=== PATIENT | male | born 1960 | race Caucasian/White ===

== ENCOUNTER 2018-05-18 11:54 | Inpatient (IN) | payer BC, OTHER ==
[2018-05-18 12:25] LABS: #Eosinphils 0.1 thou/uL (0.0-0.7); #Monocytes 0.9 thou/uL (0.11-0.59); #Neutrophils 4.7 thou/uL (1.40-6.50); %Basophils 0.6 % (0.0-1.0); %Eosinophils 1.1 % (0.0-10.0); %Lymphocytes 14.5 % (21.0-51.0); %Monocytes 13.6 % (0.0-10.0); %Neutrophils 70.2 % (42.0-75.0); Hemoglobin 13.7 g/dL (14.0-18.0); Mean Corpuscular HGB CONC 32.7 g/dL (32.0-36.0); Mean Corpuscular Hemoglobin 32.1 pg (27.0-31.0); Mean Platelet Volume 7.3 fL (7.4-10.4); Platelet Count 252 thou/uL (130-400); Red Blood Cell (RBC) Count 4.29 mill/uL (4.70-6.10); White Blood Cell (WBC) Count 6.8 thou/uL (4.8-10.8)
[2018-05-18 12:46] LABS: ALT (SGPT) 33 U/L (8-55); AST (SGOT) 29 U/L (5-34); Albumin 4.8 g/dL (3.5-5.0); Alkaline Phosphatase 92 U/L (40-150); Anion Gap 18 mmol/L (10-20); BUN (Urea Nitrogen) 12 mg/dL (8.4-25.7); Bilirubin, Total 1.6 mg/dL (0.2-1.2); Calc. Creatinine Clearance 0 mL/min (70-130); Calcium 9.5 mg/dL (7.8-10.44); Carbon Dioxide 19 mmol/L (22-29); Chloride 92 mmol/L (98-107); Estimated GFR-MDRD 83; Globulin 3.4 g/dL (2.4-3.5); Glucose 98 mg/dL (70-105); Potassium 4.8 mmol/L (3.5-5.1); Protein, Total 8.2 g/dL (6.0-8.3); Sodium 124 mmol/L (136-145)
[2018-05-18 12:50] LABS: CKMB 4.1 ng/mL (0-6.6); Troponin I 0.035 ng/mL (< 0.028)
[2018-05-18] MEDS ORDERED: Furosemide 40 MG/4 ML VIAL ONE (13:17)
[2018-05-18] MEDS ORDERED: Nitroglycerin 2% Ointment 1 INCH/1 GM Packet ONE (13:17)
[2018-05-18] MEDS ORDERED: Nitroglycerin 0.4 MG TAB (25 Tab Bottle) ONE (13:56)
--- NOTE | 2018-05-18 14:53 | RAD ---
PORTABLE UPRIGHT FRONTAL CHEST RADIOGRAPH: DATE: 05/18/2018. COMPARISON: 12/19/2006. HISTORY: Dyspnea and shortness of breath. FINDINGS: Midline sternotomy wires and prominence of the cardiac silhouette noted, stable. No pneumothorax, lo bar consolidation, or alveolar edema. IMPRESSION: No significant interval change - no focal consolidation or alveolar edema. POS: [facility]
[2018-05-18] MEDS ORDERED: niCARdipine 20MG In NaCl 20 MG/200 ML BAG ONE (14:57)
[2018-05-18] MEDS ORDERED: Bisacodyl 5 MG TAB PO PRN (15:34)
[2018-05-18] MEDS ORDERED: Senokot S 8.6-50 MG TAB PO PRN (15:34)
[2018-05-18] MEDS ORDERED: Acetaminophen 325 MG TAB PO PRN (15:34)
[2018-05-18 15:36] LABS: Troponin I 0.029 ng/mL (< 0.028)
[2018-05-18] MEDS ORDERED: Nitroglycerin 0.4 MG TAB (25 Tab Bottle) PO PRN (15:37)
[2018-05-18] MEDS ORDERED: Lorazepam 0.5 MG TAB PO PRN (16:25)
[2018-05-18 16:29] LABS: Hemoglobin A1c 5.2 % (4.0-6.0)
[2018-05-18] MEDS ORDERED: Lisinopril 20 MG TAB PO SCH (17:00)
[2018-05-18 17:21] VITALS: BMI 58.1
--- NOTE | 2018-05-18 17:30 | HP ---
CHIEF COMPLAINT: Shortness of breath. HISTORY OF PRESENT ILLNESS: The patient is a 58-year-old male with a history of coronary artery dise ase, status post bypass 12 years ago, who has been having shortness of breath for the past 4-6 weeks. The patient stated that he is able to walk only 50 to 100 feet and gets very short of breath. The patient, however, has been following up with his PCP every 6-8 months. The patient stated that he ma de an appointment with Dr. Murphy today and was seen in the office and was asked to come into the ER for further evaluation. The patient also was found to be in atrial fibrillation; however, his rat e was controlled. The patient denies any chest tightness or chest pressure. He denies any nausea, v omiting, or diarrhea. The patient does state that he has been eating a significant amount of fast fo od and has been drinking a lot of water. PAST MEDICAL HISTORY: History of hypertension, hyperlipidemia. PAST SURGICAL HISTORY: He has had open bypass. SOCIAL HISTORY: The patient is a former smoker, used to smoke 2 packs a day, quit 30 years ago. How ever alcohol, he drinks 12 pack a day, last alcoholic beverage was yesterday. He denies any recreati onal drug use. He is a FULL CODE per the patient. ALLERGIES: No known drug allergies. MEDICATIONS: He does not know his medication list. REVIEW OF SYSTEMS: All negative except for the ones mentioned above in the HPI. FAMILY HISTORY: The patient has a history of father of cirrhosis of the liver. PHYSICAL EXAMINATION: VITAL SIGNS: Initially when the patient came into the ER, his blood pressure was 230/110. The patie nt was put on a Cardene drip and also was given nitro. Currently, patient's blood pressure is 160/80 , temperature 98.8, heart rate of 80s, 98% on room air. GENERAL: He is obese. Does not appear in distress. He appears very flushed. CARDIOVASCULAR: Irregularly irregular. No murmurs or rubs heard. LUNGS: Clear to auscultation. No rhonchi or wheezes noted. ABDOMEN: Obese. Bowel sounds are present x2. No pain upon palpation. EXTREMITIES: Significant lower extremity edema. Pedal pulses are present bilaterally but has got si gnificant edema. SKIN: He does have some redness noted to his lower extremity; however, there are no signs of infecti on noted. NEUROVASCULAR: No focal deficits noted. LABORATORY DATA: As of the following, WBC of 6.8, hemoglobin of 13.7, hematocrit of 42.0, platelets of 252. His BNP was 1289. Sodium of 124, potassium of 4.8, BUN 12, creatinine 0.93. Troponin was 0 .035 and then 0.029. Bilirubin is mildly elevated at 1.6. Chest x-ray indicated mild congestion. E KG indicated afib. ASSESSMENT AND PLAN: The patient is a very pleasant 58-year-old male who presents to the hospital wi th complaints of, 1. Shortness of breath. Differential includes most likely heart failure, unsure of systolic versus diastolic. We will check an echocardiogram. We will consult Cardiology. Patient also is in atrial fibrillation and rate controlled. We will put patient on Lasix 40 mg twice a day. Strict I's and O' s, daily weight. We will also check a TSH. echo is pending. 2. Atrial fibrillation, rate controlled. New diagnosis of atrial fibrillation. The patient does no t recall him to be in atrial fibrillation in the past. CHADS-VASc score is 2, presumed to be possibl e heart failure. I will put him on Lovenox for now and also on aspirin. 3. Morbid obesity. I did educate the patient about diet and exercise. The patient states that he i s willing to make some changes. 4. Alcohol use. The patient drinks 12 pack a day. We will put the patient on alcohol withdrawal pr otocol and also p.r.n. Ativan. 5. Deep venous thrombosis prophylaxis. The patient is already on Lovenox.
[2018-05-18] MEDS: Carvedilol 25 MG TAB PO SCH (17:46)
[2018-05-18 18:27] LABS: Troponin I 0.028 ng/mL (< 0.028)
[2018-05-18] MEDS: Enoxaparin Sodium 80 MG/0.8 ML SYRINGE SC SCH (21:53)
[2018-05-18] MEDS: Enoxaparin Sodium 100 MG/ML SYRINGE SC SCH (21:53)
[2018-05-18] MEDS: Lisinopril 20 MG TAB PO SCH (21:53)
[2018-05-18] MEDS: Atorvastatin Calcium 40 MG TAB PO SCH (21:53)
[2018-05-19 05:44] LABS: Anion Gap 12 mmol/L (10-20); BUN (Urea Nitrogen) 13 mg/dL (8.4-25.7); Calc. Creatinine Clearance 212 mL/min (70-130); Calcium 9.5 mg/dL (7.8-10.44); Carbon Dioxide 28 mmol/L (22-29); Cardiac Risk 2.1 (Less than 4.5); Chloride 94 mmol/L (98-107); Cholesterol 104 mg/dl (< 200 Desired); Estimated GFR-MDRD 83; Glucose 96 mg/dL (70-105); HDL Cholesterol 49 mg/dL (>60 Neg Risk); LDL Cholesterol, Calculated 42 mg/dL; Potassium 4.1 mmol/L (3.5-5.1); Sodium 130 mmol/L (136-145); Triglycerides 63 mg/dL (Less than 150)
[2018-05-19 05:57] LABS: Hemoglobin 12.1 g/dL (14.0-18.0); Mean Corpuscular HGB CONC 32.8 g/dL (32.0-36.0); Mean Corpuscular Volume 97.5 fL (78.0-98.0); Platelet Count 222 thou/uL (130-400); Red Blood Cell (RBC) Count 3.78 mill/uL (4.70-6.10); White Blood Cell (WBC) Count 5.1 thou/uL (4.8-10.8)
[2018-05-19 05:58] LABS: Band 1 % (5-11); Eosinophils 3 % (0-10); Lymphocytes 11 % (21-51); MDiff Complete? YES; Monocytes 17 % (0-10); Neutrophil 68 % (42-75); PLT Morphology Comment Appears Adequate
[2018-05-19] MEDS: Furosemide 40 MG/4 ML VIAL SLOW IVP SCH ×2 (06:35→13:53)
[2018-05-19] MEDS ORDERED: Magnesium Sulfate 4 GM in Sodium Chloride 0.9% 250 ML 250 ML IVPB SCH (08:00)
[2018-05-19] MEDS: Enoxaparin Sodium 80 MG/0.8 ML SYRINGE SC SCH ×2 (08:52→22:11)
[2018-05-19] MEDS: Enoxaparin Sodium 100 MG/ML SYRINGE SC SCH ×2 (08:53→22:11)
[2018-05-19] MEDS: Lisinopril 20 MG TAB PO SCH ×2 (08:53→22:10)
[2018-05-19] MEDS: Carvedilol 25 MG TAB PO SCH (08:54)
[2018-05-19] MEDS: Aspirin 81 mg Enteric Coated Tablet PO SCH (08:54)
[2018-05-19] MEDS ORDERED: Aspirin 325 MG TAB PO SCH (09:00)
--- NOTE | 2018-05-19 13:45 | PDOC.PN ---
- Subjective Encounter Start Date: 05/19/18 Encounter Start Time: 09:30 Patient seen and examined for new onset a fib. No CP/SOB. No new complaints. No overnight events - Objective Resuscitation Status: Resuscitation Status FULL:Full Resuscitation MAR Reviewed: Yes Vital Signs & Weight: Vital Signs (12 hours) Temp Pulse Resp BP BP Pulse Ox 05/19/18 12:00 97.9 F 72 18 152/65 H 92 L 05/19/18 08:53 133/63 05/19/18 08:00 92 L 05/19/18 07:43 97.8 F 82 20 133/63 92 L 05/19/18 04:00 97.9 F 80 19 146/68 H 92 L Weight Weight 382 lb 7 oz I&O: 05/18/18 05/19/18 05/20/18 06:59 06:59 06:59 Intake Total 240 Output Total 850 3 Balance -850 237 Result Diagrams: 05/19/18 05:21 05/19/18 05:21 EKG Reviewed by me: Yes (Tele Afib - rate controlled.) Phys Exam - Physical Examination Constitutional: NAD Respiratory: no wheezing, no rhonchi Cardiovascular: no rub, irregular Gastrointestinal: soft, non-tender, positive bowel sounds Neurological: moves all 4 limbs Dx/Plan - Plan DVT proph w/lovenox, DVT proph w/SCDs 1. New onset A fib 2. Sinus pause 3. Morbid obesity BMI 58.1 4. HTN 5. Suspected Sleep Apnea 6. Hypomagnesemia/ Hyponatremia/Elevated troponins due to demand ischemia PLAN: Echo hold betablockers due to sinus pause Cont anticoag AM labs Replace Magnessium Cont other meds as below Laboratory Tests 05/19/18 05:21 Magnesium 1.4 L Review of Systems - Review of Systems Respiratory: negative: Cough, Dry, Shortness of Breath, Hemoptysis, SOB with Excertion, Pleuritic Pain, Sputum, Wheezing Cardiovascular: negative: chest pain, palpitations, orthopnea, paroxysmal nocturnal dyspnea, edema, light headedness, other - Medications/Allergies Allergies/Adverse Reactions: Allergies Allergy/AdvReac Type Severity Reaction Status Date / Time No Known Allergies Allergy Verified 05/18/18 17:25 Medications: Current Medications Acetaminophen (Tylenol) 650 mg PO Q4H PRN PRN Reason: Headache/Fever/Mild Pain (1-3) Aspirin (Ecotrin) 81 mg PO DAILY [facility] Last Admin: 05/19/18 08:54 Dose: 81 mg Atorvastatin Calcium (Lipitor) 40 mg PO HS [facility] Last Admin: 05/18/18 21:53 Dose: 40 mg Bisacodyl (Dulcolax) 10 mg PO DAILYPRN PRN PRN Reason: Constipation Enoxaparin Sodium (Lovenox) 100 mg SC 0900,2100 [facility] Last Admin: 05/19/18 08:53 Dose: 100 mg Enoxaparin Sodium (Lovenox) 70 mg SC 0900,2100 [facility] Last Admin: 05/19/18 08:52 Dose: 70 mg Furosemide (Lasix) 40 mg SLOW IVP 0600,1400 [facility] Last Admin: 05/19/18 06:35 Dose: 40 mg Lisinopril (Zestril) 20 mg PO BID [facility] Last Admin: 05/19/18 08:53 Dose: 20 mg Lorazepam (Ativan) 0.5 mg PO Q4H PRN PRN Reason: Anxiety Nitroglycerin (Nitrostat) 0.4 mg PO Q5MIN PRN PRN Reason: Chest Pain Pneumococcal Polyvalent Vaccine (Pneumovax 23) 0.5 ml IM .ONCE ONE Stop: 05/20/18 09:01 Senna/Docusate Sodium (Senokot S) 2 tab PO BID PRN PRN Reason: Constipation
[2018-05-19] MEDS: Atorvastatin Calcium 40 MG TAB PO SCH (22:10)
[2018-05-20 04:37] LABS: Anion Gap 14 mmol/L (10-20); BUN (Urea Nitrogen) 12 mg/dL (8.4-25.7); Calc. Creatinine Clearance 183 mL/min (70-130); Calcium 9.5 mg/dL (7.8-10.44); Carbon Dioxide 30 mmol/L (22-29); Chloride 94 mmol/L (98-107); Estimated GFR-MDRD 73; Glucose 102 mg/dL (70-105); Magnesium 1.8 mg/dL (1.6-2.6); Potassium 3.8 mmol/L (3.5-5.1); Sodium 134 mmol/L (136-145)
[2018-05-20 04:45] LABS: Hemoglobin 12.4 g/dL (14.0-18.0); Hypochromia SLIGHT = 6-15 cells (100X) (0-5/hpf); Lymphocytes 22 % (21-51); MDiff Complete? YES; Macrocytosis SLIGHT = 6-15 cells (100X) (0-5/hpf); Mean Corpuscular HGB CONC 31.6 g/dL (32.0-36.0); Mean Corpuscular Hemoglobin 31.7 pg (27.0-31.0); Mean Platelet Volume 7.1 fL (7.4-10.4); Monocytes 3 % (0-10); Neutrophil 75 % (42-75); PLT Morphology Comment Appears Adequate; Platelet Count 228 thou/uL (130-400); RBC Distribution Width 12.2 % (11.5-14.5); Red Blood Cell (RBC) Count 3.93 mill/uL (4.70-6.10); White Blood Cell (WBC) Count 6.1 thou/uL (4.8-10.8)
[2018-05-20] MEDS: Furosemide 40 MG/4 ML VIAL SLOW IVP SCH ×2 (06:40→13:57)
--- NOTE | 2018-05-20 08:35 | CON ---
DATE OF CONSULTATION: 05/19/2018 HISTORY OF PRESENT ILLNESS: The patient is a 58-year-old white male who is followed with Dr. Murphy since 2006. In 11/2006, he underwent CABG x2 with HILL to the LAD and saphenous vein graft to the ramus. He has not been seen much since that time. Yesterday on 05/18/2018, he saw Dr. Murphy for the first time in many years. His main complaint was that of exertional dyspnea and weight gain. He denied any chest, arm, neck, or jaw discomfort. He was found to be in atrial fibrillation, which was a new finding for him and has recommended that he would be admitted. PAST MEDICAL HISTORY: Hypertension, hyperlipidemia. No history of diabetes and obesity. MEDICATIONS: Lisinopril 20 mg daily, metoprolol tartrate 100 mg daily, simvastatin 40 at bedtime. ALLERGIES: None. SOCIAL HISTORY: He stopped smoking 30 years ago. REVIEW OF SYSTEMS: Ten point review of systems otherwise unremarkable. PHYSICAL EXAMINATION: VITAL SIGNS: 119/57, pulse is 71 and irregularly irregular. HEENT: PERRL. NECK: Supple. CHEST: Clear. CARDIAC: S1, S2 normal, without any S3, S4 or murmurs. ABDOMEN: Obese. Normal bowel sounds, no tenderness. EXTREMITIES: Revealed 1-2+ pretibial edema. NEUROLOGIC: Grossly intact. SKIN: Warm and dry. IMAGING DATA AND LABORATORY DATA: EKG reveals atrial fibrillation with rate of 82 per minute, incomplete right bundle branch block. On the monitor, he did have a 2.6 second pause. This is after he received carvedilol 25 mg the night before. Hemoglobin 12.1, hematocrit 36.9, white count 5100, platelets 222,000. Sodium 130, potassium 4.1, chloride 94, carbon dioxide 28, BUN 13, creatinine 0.93, troponin I is 0.035, cholesterol 104, triglycerides 63, HDL 49, LDL 42. TSH is normal. IMPRESSION: 1. Apparently, new onset atrial fibrillation. Rate appears to be fairly well controlled. He had a 2.6 second pause after receiving large doses of carvedilol. Some degree of beta blockade may need to be resumed for rate control. He also needs to be adequately anticoagulated and consideration given to oral agents. 2. Hypertension. 3. Hyperlipidemia, under good control. 4. Status post coronary artery bypass graft. 5. Morbid obesity. 6. Questionable sleep apnea. PLAN: The patient is being treated with IV diuretics and will continue to be diuresed. His rate will be watched closely as well as his blood pressure. I will start him on p.o. Xarelto in the morning for anticoagulation. MYKED
[2018-05-20] MEDS: Lisinopril 20 MG TAB PO SCH ×2 (10:23→21:06)
[2018-05-20] MEDS: Aspirin 81 mg Enteric Coated Tablet PO SCH (10:24)
[2018-05-20] MEDS: Rivaroxaban 10 MG TAB PO SCH (10:24)
--- NOTE | 2018-05-20 20:10 | PDOC.PN ---
- Subjective Encounter Start Date: 05/20/18 Encounter Start Time: 09:00 Patient seen and examined for CHF/Afib. SOB improving. No new complaints. No overnight events - Objective Resuscitation Status: Resuscitation Status FULL:Full Resuscitation MAR Reviewed: Yes Vital Signs & Weight: Vital Signs (12 hours) Temp Pulse Resp BP Pulse Ox 05/20/18 16:00 97.5 F L 70 20 160/70 H 93 L 05/20/18 12:00 97.9 F 79 20 132/62 91 L Weight Weight 354 lb 1 oz I&O: 05/19/18 05/20/18 05/21/18 06:59 06:59 06:59 Intake Total 480 Output Total 850 3 Balance -850 477 Result Diagrams: 05/20/18 03:46 05/20/18 03:46 EKG Reviewed by me: Yes (Tele Afib) Phys Exam - Physical Examination Constitutional: NAD Respiratory: no wheezing, no rhonchi few bibasilar rales Cardiovascular: no rub, irregular Gastrointestinal: soft, positive bowel sounds Musculoskeletal: edema present Neurological: moves all 4 limbs Dx/Plan - Plan 1. New onset A fib/ Acute Diastolic HF - stage C 2. Sinus pause due to high dose Coreg 3. Morbid obesity BMI 58.1 4. HTN 5. Suspected Sleep Apnea 6. Hypomagnesemia/ Hyponatremia/Elevated troponins due to demand ischemia PLAN: Cont diuretics ACEI and BB started Cont anticoag - Patient understands the risk associated wtih anticoag AM labs Cont other meds as below Review of Systems - Review of Systems Constitutional: negative: fever, chills, sweats, weakness, malaise, other Gastrointestinal: negative: Nausea, Vomiting, Abdominal Pain, Diarrhea, Constipation, Melena, Hematochezia, Other - Medications/Allergies Allergies/Adverse Reactions: Allergies Allergy/AdvReac Type Severity Reaction Status Date / Time No Known Allergies Allergy Verified 05/18/18 17:25 Medications: Current Medications Acetaminophen (Tylenol) 650 mg PO Q4H PRN PRN Reason: Headache/Fever/Mild Pain (1-3) Aspirin (Ecotrin) 81 mg PO DAILY [facility] Last Admin: 05/20/18 10:24 Dose: 81 mg Atorvastatin Calcium (Lipitor) 40 mg PO HS [facility] Last Admin: 05/19/18 22:10 Dose: 40 mg Bisacodyl (Dulcolax) 10 mg PO DAILYPRN PRN PRN Reason: Constipation Furosemide (Lasix) 40 mg PO DAILY-AC [facility] Lisinopril (Zestril) 20 mg PO BID [facility] Last Admin: 05/20/18 10:23 Dose: 20 mg Lorazepam (Ativan) 0.5 mg PO Q4H PRN PRN Reason: Anxiety Metoprolol Tartrate (Lopressor) 50 mg PO BID [facility] Nitroglycerin (Nitrostat) 0.4 mg PO Q5MIN PRN PRN Reason: Chest Pain Rivaroxaban (Xarelto) 20 mg PO DAILY [facility] Last Admin: 05/20/18 10:24 Dose: 20 mg Senna/Docusate Sodium (Senokot S) 2 tab PO BID PRN PRN Reason: Constipation
[2018-05-20] MEDS: Atorvastatin Calcium 40 MG TAB PO SCH (21:05)
[2018-05-20] MEDS: Metoprolol Tartrate 50 MG TAB PO SCH (21:05)
[2018-05-21 04:46] LABS: Anion Gap 16 mmol/L (10-20); BUN (Urea Nitrogen) 14 mg/dL (8.4-25.7); Calc. Creatinine Clearance 171 mL/min (70-130); Calcium 9.9 mg/dL (7.8-10.44); Carbon Dioxide 31 mmol/L (22-29); Chloride 95 mmol/L (98-107); Estimated GFR-MDRD 71; Glucose 104 mg/dL (70-105); Magnesium 1.7 mg/dL (1.6-2.6); Potassium 3.6 mmol/L (3.5-5.1); Sodium 138 mmol/L (136-145)
[2018-05-21 05:07] LABS: Band 1 % (5-11); Eosinophils 3 % (0-10); Hemoglobin 12.8 g/dL (14.0-18.0); Lymphocytes 18 % (21-51); MDiff Complete? YES; Mean Corpuscular HGB CONC 32.4 g/dL (32.0-36.0); Mean Corpuscular Hemoglobin 32.4 pg (27.0-31.0); Mean Corpuscular Volume 99.9 fL (78.0-98.0); Monocytes 20 % (0-10); Neutrophil 58 % (42-75); Platelet Count 253 thou/uL (130-400); RBC Distribution Width 12.3 % (11.5-14.5); Red Blood Cell (RBC) Count 3.96 mill/uL (4.70-6.10); White Blood Cell (WBC) Count 6.3 thou/uL (4.8-10.8)
[2018-05-21] MEDS ORDERED: Furosemide 40 MG TAB PO SCH (07:30)
[2018-05-21 08:07] VITALS: BP 132/60; TEMP 99
[2018-05-21] MEDS: Lisinopril 20 MG TAB PO SCH (10:12)
[2018-05-21] MEDS: Aspirin 81 mg Enteric Coated Tablet PO SCH (10:12)
[2018-05-21] MEDS: Metoprolol Tartrate 50 MG TAB PO SCH (10:13)
[2018-05-21] MEDS: Rivaroxaban 10 MG TAB PO SCH (10:13)
--- NOTE | 2018-05-21 11:16 | DIS ---
DATE OF ADMISSION: 05/18/2018 DATE OF DISCHARGE: 05/21/2018 DISCHARGE DISPOSITION: Home. FOLLOWUP: 1. Follow up with primary care physician, Dr. Odonnell in 1 week. 2. Follow up with Dr. Murphy in 1-2 weeks. 3. BMP with magnesium next week is recommended. Primary care physician advised to follow. ALLERGIES: No known drug allergies. DISCHARGE MEDICATIONS: Lasix 40 mg daily, aspirin 81 mg daily, Xarelto 20 mg daily, Lopressor 50 mg b.i.d., lisinopril 20 mg b.i.d. INPATIENT CONSULTANTS: Cardiology, Dr. Elkin Valdes. BRIEF HOSPITAL COURSE: The patient is a 58-year-old male with hypertension, hyperlipidemia and morbi d obesity, who presented to the hospital with shortness of breath on 05/18/2018. Please refer to the history and physical for further details. The patient was admitted with a diagnosis of new onset atrial fibrillation as well as congestive hear t failure exacerbation. His BNP was 1300 range with indeterminate troponins. His sodium was 124, to blanquita bilirubin was 1.6 and magnesium was 1.4. He showed good improvement with diuretics. His weight on admission was 382 pounds and at discharge is 347 pounds. IV Lasix has been changed to oral. Pam nopril dose was increased. The patient had one episode of 2.6 second sinus pause when he was getting Carvedilol 25 mg twice a day. Carvedilol was discontinued. Dr. Valdes started him on metoprolol 50 mg twice a day. Over the last 24 hours, the patient did not have significant bradycardia or recur rence of sinus pause. Echocardiogram showed left ventricular ejection fraction of 55%-60% with mild mitral regurgitation, mild tricuspid regurgitation with left atrium dilatation. He has been started on anticoagulation. He understands the risks, not limited to life threatening bleeding with anticoag ulation. Electrolytes have been replaced. He is currently on room air and appears stable for discha rge. FINAL DIAGNOSES: 1. Acute diastolic heart failure. 2. New onset atrial fibrillation. 3. Sinus pause due to high dose of carvedilol. No new episodes after discontinuation of carvedilol. 4. Morbid obesity with a BMI of 58. 5. Hypertension. 6. Suspected sleep apnea. He was advised to follow up with Dr. Lazo for sleep study. 7. Hypomagnesemia, replaced. 8. Hyponatremia, corrected. 9. Elevated troponin secondary to demand ischemia. 10. Chronic alcoholism. The patient was extensively counseled. Plan of care was discussed with the patient in detail, He stated understanding.
== END 2018-05-21 11:41 | disposition home or self-care (01) | DRG 291 ==
LOC: ERS 11:54 → ERHOLD 14:55 → 2SE 17:02
PROVIDERS: ADMIT Internal Medicine; ATTEND Internal Medicine
DX: I11.0 Hypertensive heart disease with heart failure (principal); I50.31 Acute diastolic (congestive) heart failure; Z68.43 Body mass index [BMI] 50.0-59.9, adult; I24.8 Other forms of acute ischemic heart disease; E87.1 Hypo-osmolality and hyponatremia; I48.0 Paroxysmal atrial fibrillation; E83.42 Hypomagnesemia; G47.30 Sleep apnea, unspecified; I25.110 Atherosclerotic heart disease of native coronary artery with unstable angina pectoris; E66.01 Morbid (severe) obesity due to excess calories; F10.20 Alcohol dependence, uncomplicated; E78.5 Hyperlipidemia, unspecified; Z95.1 Presence of aortocoronary bypass graft; Z79.82 Long term (current) use of aspirin
CPT/HCPCS: 36415; 71045; 80048; 80053; 80061; 82553; 83036; 83735; 83880; 84443; 84484; 85025; 90471; 90732; 93005; 93306; 93798; 96365; 96375; G0009; J1650; J1940; J3475; J7050

== ENCOUNTER 2023-04-21 07:55 | Observation (INO) | payer BC ==
[2023-04-21 08:54] LABS: #Eosinphils 0.1 thou/uL (0.0-0.7); #Monocytes 0.7 thou/uL (0.11-0.59); #Neutrophils 4.3 thou/uL (1.40-6.50); %Basophils 0.7 % (0.0-1.0); %Eosinophils 1.6 % (0.0-10.0); %Lymphocytes 15.1 % (21.0-51.0); %Monocytes 11.6 % (0.0-10.0); %Neutrophils 70.5 % (42.0-75.0); Hemoglobin 11.7 g/dL (14.0-18.0); Mean Corpuscular HGB CONC 34.4 g/dL (32.0-36.0); Mean Corpuscular Hemoglobin 33.2 pg (27.0-31.0); Mean Corpuscular Volume 96.6 fl (78.0-98.0); Platelet Count 224 10x3/uL (130-400); RBC Distribution Width 13.1 % (11.5-14.5); Red Blood Cell (RBC) Count 3.52 mill/uL (4.70-6.10); White Blood Cell (WBC) Count 6.1 10x3/uL (4.8-10.8)
[2023-04-21 09:25] LABS: Troponin I 0.016 ng/mL (< 0.028)
[2023-04-21 09:28] LABS: ALT (SGPT) 19 U/L (8-55); AST (SGOT) 18 U/L (5-34); Albumin 4.5 g/dL (3.4-4.8); Alkaline Phosphatase 43 U/L (40-110); Anion Gap 17 mmol/L (10-20); BUN (Urea Nitrogen) 25 mg/dL (8.4-25.7); Calc. Creatinine Clearance 0 mL/min (70-130); Calcium 9.4 mg/dL (7.8-10.44); Carbon Dioxide 20 mmol/L (23-31); Chloride 97 mmol/L (98-107); Estimated GFR 57; Globulin 2.5 g/dL (2.4-3.5); Glucose 90 mg/dL (80-115); Potassium 4.5 mmol/L (3.5-5.1); Sodium 129 mmol/L (136-145)
[2023-04-21] MEDS ORDERED: Ondansetron PF 4 MG/2 ML Vial IVP PRN (12:01)
[2023-04-21] MEDS ORDERED: Senokot S 8.6-50 MG TAB PO PRN (12:01)
[2023-04-21] MEDS ORDERED: Calcium Carbonate 500 MG ChewTAB PO PRN (12:01)
[2023-04-21] MEDS ORDERED: Ondansetron ODT 4 MG TAB PO PRN (12:01)
[2023-04-21] MEDS ORDERED: Acetaminophen 325 MG TAB PO PRN (12:01)
[2023-04-21] MEDS ORDERED: hydrALAZINE 20 MG/ML VIAL SLOW IVP PRN (12:41)
[2023-04-21] MEDS ORDERED: Magnesium 2 GM/50 ML(in water) 2 GM in Premix 1 BAG IVPB SCH (12:45)
[2023-04-21] MEDS ORDERED: Atropine Sulfate 1 mg/1 ml Vial IVP PRN (12:46)
[2023-04-21] MEDS ORDERED: Lorazepam 1 MG TAB PO PRN (12:47)
[2023-04-21] MEDS ORDERED: Lorazepam 2 MG/ML VIAL IM PRN (12:47)
[2023-04-21] MEDS ORDERED: Thiamine HCl 200 MG/2 ML VIAL SLOW IVP SCH (13:00)
[2023-04-21] MEDS ORDERED: Multivit, Therapeutic 1 TAB PO SCH (13:00)
[2023-04-21] MEDS ORDERED: Folic Acid 1 MG TAB PO SCH (13:00)
[2023-04-21] MEDS ORDERED: Electrolyte Replacement Protocol 1 EACH FS SCH (13:00)
[2023-04-21 13:10] VITALS: BMI 47.3
[2023-04-21] MEDS ORDERED: Folic Acid 1 MG TAB ONE (13:25)
[2023-04-21] MEDS ORDERED: Multivit, Therapeutic 1 TAB ONE (13:25)
[2023-04-21] MEDS ORDERED: Thiamine HCl 200 MG/2 ML VIAL ONE (13:26)
[2023-04-21 15:19] VITALS: BP 152/73; TEMP 98.4
[2023-04-21 16:59] LABS: Troponin I 0.014 ng/mL (< 0.028)
[2023-04-21] MEDS ORDERED: Lisinopril 20 MG TAB PO SCH (21:00)
[2023-04-21] MEDS ORDERED: Famotidine 20 MG TAB PO SCH (21:00)
[2023-04-22] MEDS ORDERED: Folic Acid 1 MG TAB PO SCH (09:00)
[2023-04-22] MEDS ORDERED: Multivit, Therapeutic 1 TAB PO SCH (09:00)
[2023-04-22] MEDS ORDERED: Lorazepam 1 MG TAB PO PRN (12:47)
[2023-04-23] MEDS ORDERED: Lorazepam 1 MG TAB PO PRN (12:47)
[2023-04-24] MEDS ORDERED: Lorazepam 0.5 MG TAB PO PRN (12:47)
[2023-04-24] MEDS ORDERED: Thiamine 100 MG TAB PO SCH (13:00)
== END 2023-04-21 17:03 | disposition home or self-care (01) ==
LOC: ERS 07:55 → ERHOLD 12:09
PROVIDERS: ADMIT Internal Medicine; ATTEND Internal Medicine
DX: R55 Syncope and collapse (principal); F10.120 Alcohol abuse with intoxication, uncomplicated; I48.20 Chronic atrial fibrillation, unspecified; E87.1 Hypo-osmolality and hyponatremia; I25.10 Atherosclerotic heart disease of native coronary artery without angina pectoris; E78.5 Hyperlipidemia, unspecified; I12.9 Hypertensive chronic kidney disease with stage 1 through stage 4 chronic kidney disease, or unspecified chronic kidney disease; N18.30 Chronic kidney disease, stage 3 unspecified; N17.9 Acute kidney failure, unspecified; D64.9 Anemia, unspecified; E83.42 Hypomagnesemia; Z79.899 Other long term (current) drug therapy; Z95.1 Presence of aortocoronary bypass graft
CPT/HCPCS: 36415; 80053; 83880; 83930; 84484; 85025; 93005; J3411; J3475